=== PATIENT | female | born 1990 | race African-American/Black ===

== ENCOUNTER 2016-09-27 00:27 | Emergency (ER) | payer MEDICAID ==
[~2016-09-27] VITALS: Ht 175.3 cm; Wt 75.0 kg
[2016-09-27] MEDS ORDERED: methylPREDNISolone SOD SUCC 125 MG/2 ML VL IV ONE (01:30)
[2016-09-27] MEDS ORDERED: SODIUM CHLORIDE 0.9% 1,000 ML IV ONE (01:30)
[2016-09-27 01:36] VITALS: BP 123/87
[2016-09-27] MEDS ORDERED: methylPREDNISolone SOD SUCC 125 MG/2 ML VL IM ONE ×2 (01:45)
== END 2016-09-27 01:56 | disposition home or self-care (01) ==
LOC: ER 00:32
DX: L42 Pityriasis rosea (principal)
CPT/HCPCS: 96372; 99283; J2930

== ENCOUNTER 2017-01-02 11:48 | Emergency (ER) | payer MEDICAID ==
[~2017-01-02] VITALS: Ht 175.3 cm; Wt 72.6 kg
[2017-01-02 11:51] VITALS: BP 132/82
[2017-01-02 12:25] LABS: Urine Bilirubin Negative (Negative); Urine Blood Negative /uL (Negative); Urine Color Yellow (Yellow); Urine Glucose Normal (Normal); Urine Mucus FEW (None Seen); Urine Nitrite Negative (Negative); Urine RBC 2 /hpf (0 - 4); Urine Squamous Epithelial Cell FEW /hpf (<5); Urine Urobilinogen Normal (Negative)
[2017-01-02 12:27] LABS: Urine Ketone 2+ (Negative)
== END 2017-01-02 14:28 | disposition home or self-care (01) ==
LOC: ER 11:48
DX: N39.0 Urinary tract infection, site not specified (principal)
CPT/HCPCS: 81001; 81025